=== PATIENT | female | born 1960 | race Caucasian/White ===

== ENCOUNTER 2017-12-26 19:04 | Inpatient (IN) | payer OTHER ==
[~2017-12-26] VITALS: Ht 152.4 cm; Wt 61.3 kg
[~2017-12-26 19:04] MED LIST: HYDROCHLOROTHIA50 MG PO; NEURONTIN100 MG PO; OMEPRAZOLE DR20 M1 PO; SIMVASTATIN10 M1 PO; VALIUM PO; ZOLOFT100 MG PO
[2017-12-26 19:56] LABS: BASOPHIL % 0.3 % (0-2); PLATELET COUNT 310 x10^3mcL (130-400); RED CELL DISTRIBUTION WIDTH 13.8 % (11.5-14.5)
[2017-12-26 20:08] LABS: CALCIUM 9.1 mg/dL (8.5-10.1); CARBON DIOXIDE 29.7 mmol/L (21-32); CHLORIDE SERUM 105 mmol/L (98-107); GFR1 > 60 mL/min; GLUCOSE SERUM 101 mg/dL (74-106); POTASSIUM SERUM 3.1 mmol/L (3.5-5.1); SODIUM SERUM 146 mmol/L (136-145)
[2017-12-26 20:11] LABS: ALBUMIN 3.6 g/dL (3.4-5.0); ALKALINE PHOSPHATASE 107 U/L (46-116); ALT/SGPT 34 U/L (14-59); AST/SGOT 24 U/L (15-37); BILIRUBIN TOTAL 0.44 mg/dL (0.20-1.00); TOTAL PROTEIN, SERUM 7.3 g/dL (6.4-8.2)
[2017-12-26 21:41] LABS: UA SPECIFIC GRAVITY 1.015 (1.005-1.035); microscopic required? YES; urine erythrocyte NEGATIVE (NEGATIVE)
[2017-12-26 21:50] LABS: AMPHETAMINE QUAL UR NONE DETECTED (NEG <=1000)
[2017-12-27 09:25] VITALS: BP 152/77
[2017-12-27 10:46] LABS: CHOLESTEROL/HDL RATIO 3.5; PHOSPHOROUS 2.9 mg/dL (2.5-4.9)
[2017-12-27 10:54] LABS: T3 TOTAL 0.91 ng/mL
[2017-12-27 10:58] LABS: FREE T4 1.26 ng/dL (0.76-1.46); FREE THYROXINE INDEX 3.9 ug/dL (1.4-4.5); T4(THYROXINE) 10.2 ug/dL (4.7-13.3)
[2017-12-27] MEDS ORDERED: VENLAFAXINE HYD75 M1 PO (12:39)
[2017-12-27] MEDS ORDERED: NATURE'S BLEND100 M1 PO (12:41)
[2017-12-27] MEDS ORDERED: RESTORIL15 MG PO (12:44)
[2017-12-27] MEDS ORDERED: MAGNESIUM OXID400 MG PO (12:45)
[2017-12-27] MEDS ORDERED: TRIAMTERENE AND1 TA1 PO (12:47)
[2017-12-27] MEDS ORDERED: DYR50 PO (12:54)
[2017-12-27 14:42] LABS: CALCIUM 9.1 mg/dL (8.5-10.1); CARBON DIOXIDE 28.3 mmol/L (21-32); CHLORIDE SERUM 106 mmol/L (98-107); CREATININE SERUM 0.9 mg/dL (0.6-1.0); GFR1 > 60 mL/min; GLUCOSE SERUM 98 mg/dL (74-106); POTASSIUM SERUM 3.6 mmol/L (3.5-5.1); SODIUM SERUM 144 mmol/L (136-145)
[2017-12-27 16:08] VITALS: Ht 152.4 cm; Wt 61.3 kg
[2017-12-27 18:40] VITALS: BP 159/87
[2017-12-27 23:35] VITALS: BP 139/79
[2017-12-28 05:36] VITALS: BP 149/87
[2017-12-28 06:12] LABS: BASOPHIL % 0.5 % (0-2); PLATELET COUNT 269 x10^3mcL (130-400)
[2017-12-28 06:24] LABS: CALCIUM 8.3 mg/dL (8.5-10.1); CARBON DIOXIDE 26.5 mmol/L (21-32); CHLORIDE SERUM 112 mmol/L (98-107); CREATININE SERUM 0.9 mg/dL (0.6-1.0); GFR1 > 60 mL/min; GLUCOSE SERUM 91 mg/dL (74-106); MAGNESIUM 1.8 mg/dL (1.8-2.4); PHOSPHOROUS 2.5 mg/dL (2.5-4.9); POTASSIUM SERUM 3.7 mmol/L (3.5-5.1); SODIUM SERUM 148 mmol/L (136-145)
[2017-12-28 08:04] VITALS: BP 163/93
[2017-12-28] MEDS ORDERED: RESTORIL15 MG PO (10:10)
[2017-12-28 12:38] VITALS: BP 159/90
[2017-12-28 13:53] VITALS: BP 168/94
[2017-12-28 16:05] VITALS: BP 154/94
[2017-12-28 20:53] VITALS: BP 160/99
[2017-12-29 05:26] VITALS: BP 151/91
[2017-12-29 06:01] LABS: BASOPHIL % 0.4 % (0-2); PLATELET COUNT 304 x10^3mcL (130-400); RED CELL DISTRIBUTION WIDTH 14.1 % (11.5-14.5)
[2017-12-29 06:16] LABS: CALCIUM 9.3 mg/dL (8.5-10.1); CARBON DIOXIDE 29.8 mmol/L (21-32); CHLORIDE SERUM 106 mmol/L (98-107); CREATININE SERUM 0.9 mg/dL (0.6-1.0); GFR1 > 60 mL/min; GLUCOSE SERUM 85 mg/dL (74-106); POTASSIUM SERUM 4.1 mmol/L (3.5-5.1); SODIUM SERUM 144 mmol/L (136-145)
[2017-12-29 09:15] VITALS: BP 155/93
[2017-12-29 13:27] VITALS: BP 148/97
[2017-12-29 18:14] VITALS: BP 146/91
[2017-12-29 21:30] VITALS: BP 144/91
[2017-12-30 05:50] VITALS: BP 133/91; BP 157/92
[2017-12-30 05:57] LABS: BASOPHIL % 0.4 % (0-2); PLATELET COUNT 329 x10^3mcL (130-400); RED CELL DISTRIBUTION WIDTH 13.9 % (11.5-14.5)
[2017-12-30 07:29] LABS: CALCIUM 9.7 mg/dL (8.5-10.1); CARBON DIOXIDE 28.8 mmol/L (21-32); CREATININE SERUM 1.1 mg/dL (0.6-1.0); POTASSIUM SERUM 4.1 mmol/L (3.5-5.1)
[2017-12-30 09:08] VITALS: BP 150/91
[2017-12-30 13:48] VITALS: BP 139/87
[2017-12-30 17:24] VITALS: BP 140/90
[2017-12-30] MEDS ORDERED: KEFLEX500 M1 PO (17:31)
[2017-12-30] MEDS ORDERED: LAC PO (17:31)
[2017-12-30 17:40] VITALS: BP 140/90
[2017-12-30] MEDS ORDERED: ABILIFY5 M1 PO (17:42)
== END 2017-12-30 19:05 | DRG 885 ==
LOC: ED 19:04 → DU 12-27 05:55
PROVIDERS: Emergency Medicine; Family Medicine
DX: F33.3 Major depressive disorder, recurrent, severe with psychotic symptoms (principal); G93.41 Metabolic encephalopathy; N17.0 Acute kidney failure with tubular necrosis; R45.851 Suicidal ideations; N39.0 Urinary tract infection, site not specified; I10 Essential (primary) hypertension; E87.6 Hypokalemia; R80.9 Proteinuria, unspecified; G47.00 Insomnia, unspecified; F42.3 Hoarding disorder; Z68.27 Body mass index [BMI] 27.0-27.9, adult
CPT/HCPCS: 83880; 84439; G0480; J0696; J3490; J7030; Q0092